=== PATIENT | female | born 1995 | race Caucasian/White ===

== ENCOUNTER → 2024-07-12 | Outpatient (CLI) | payer OTHER | LOC: M WHC 08:09 | PROVIDERS: ATTEND Obstetrics & Gynecology | DX: Z34.92 Encounter for supervision of normal pregnancy, unspecified, second trimester (principal) ==

== ENCOUNTER → 2024-08-03 | Outpatient (CLI) | payer OTHER ==
[2024-08-03 13:57] LABS: HEMATOCRIT 37.2 % (36.0-47.0); MEAN CORPUSCULAR HEMOGLOBIN 28.5 pg (27.0-33.0); MEAN CORPUSCULAR HGB CONC 32.3 g/dl (32.0-36.5); MEAN CORPUSCULAR VOLUME 88.4 fl (80.0-96.0); PLATELET COUNT, AUTOMATED 208 10^3/uL (150-450); RED BLOOD COUNT 4.21 10^6/uL (4.00-5.40); WHITE BLOOD COUNT 10.9 10^3/uL (4.0-10.0)
[2024-08-03 14:36] LABS: GLUCOSE CHALLENGE TEST 1 HOUR 92 MG/DL (LESS THAN 140)
[2024-08-03 15:06] LABS: HIV 1&2 SCREEN NEGATIVE (NEGATIVE)
[2024-08-03 15:13] LABS: HEPATITIS C VIRUS ABY INDEX 0.03 INDEX (<0.8)
== END ==
LOC: M PLALAB 09:25
PROVIDERS: ATTEND Obstetrics & Gynecology
DX: Z34.92 Encounter for supervision of normal pregnancy, unspecified, second trimester (principal)

== ENCOUNTER 2024-09-15 10:21 | Outpatient (CLI) | payer OTHER ==
[2024-09-15] MEDS ORDERED: ACET-897 PO (10:48)
[2024-09-15] MEDS ORDERED: PRENTAB9 PO (10:48)
[2024-09-15] MEDS: CYCLOBENZAPRINE 10MG TABLET PO ONE (15:14)
== END 2024-09-15 18:41 | disposition home or self-care (01) ==
LOC: M LDO 10:21
PROVIDERS: ATTEND Obstetrics & Gynecology
DX: O26.893 Other specified pregnancy related conditions, third trimester (principal); O99.513 Diseases of the respiratory system complicating pregnancy, third trimester; O09.293 Supervision of pregnancy with other poor reproductive or obstetric history, third trimester; R10.2 Pelvic and perineal pain; J45.909 Unspecified asthma, uncomplicated; Z3A.33 33 weeks gestation of pregnancy
CPT/HCPCS: 59025; G0463

== ENCOUNTER 2024-09-30 14:49 | Outpatient (CLI) | payer OTHER ==
[~2024-09-30] VITALS: Ht 170.2 cm; Wt 110.3 kg
[~2024-09-30 14:49] MED LIST: ACET-897 PO; PRENTAB9 PO
[2024-09-30 15:11] VITALS: BP 138/74
[2024-09-30 16:23] VITALS: BP 136/86
[2024-09-30] MEDS: PROMETHAZINE 25MG/ML 1ML VIAL IV ONE (16:52)
[2024-09-30] MEDS: BUTORPHANOL 2 MG/ML 1ML VIAL IV ONE (16:52)
[2024-09-30] MEDS: LR 1,000 ML IV SCH (16:52)
[2024-09-30 18:51] VITALS: BP 157/75
[2024-09-30 19:03] VITALS: BP 129/60
[2024-09-30] MEDS: PROMETHAZINE 25MG/ML 1ML VIAL IV PRN (21:03)
[2024-09-30 21:49] VITALS: BP 99/62
[2024-10-01 01:00] LABS: MEAN CORPUSCULAR HGB CONC 32.4 g/dl (32.0-36.5); MEAN CORPUSCULAR VOLUME 83.3 fl (80.0-96.0); PLATELET COUNT, AUTOMATED 175 10^3/uL (150-450); RED BLOOD COUNT 4.08 10^6/uL (4.00-5.40); WHITE BLOOD COUNT 8.2 10^3/uL (4.0-10.0)
[2024-10-01] MEDS ORDERED: PROM12.56 PO (01:04)
[2024-10-01 01:39] LABS: APPEARANCE, URINE HAZY (CLEAR); BACTERIA, URINE AUTO NEGATIVE (NEGATIVE); BILIRUBIN, URINE AUTO NEGATIVE (NEGATIVE); BLOOD, URINE BLOOD NEGATIVE (NEGATIVE); COLOR, URINE YELLOW (YELLOW); GLUCOSE, URINE (UA) AUTO NEGATIVE (NEGATIVE); KETONE, URINE AUTO 1+ mg/dL (NEGATIVE); LEUKOCYTE ESTERASE, URINE AUTO NEGATIVE (NEGATIVE); MUCUS, URINE SMALL (NEGATIVE); NITRITE, URINE AUTO NEGATIVE (NEGATIVE); PROTEIN, URINE AUTO NEGATIVE (NEGATIVE); RBC, URINE AUTO 0 /HPF (0-3); SPECIFIC GRAVITY URINE AUTO 1.018 (1.002-1.035); SQUAMOUS EPITHELIAL CELL UR AU 2 /HPF (0-6); WBC, URINE AUTO 1 /HPF (0-3)
== END 2024-10-01 01:37 | disposition home or self-care (01) ==
LOC: M LDO 14:49
PROVIDERS: ATTEND Obstetrics & Gynecology
DX: O26.893 Other specified pregnancy related conditions, third trimester (principal); M54.50 Low back pain, unspecified; R10.2 Pelvic and perineal pain; Z3A.35 35 weeks gestation of pregnancy; R03.0 Elevated blood-pressure reading, without diagnosis of hypertension
CPT/HCPCS: 36415; 59025; 73502; 81001; 85027; 87086; 96374; 96375; 96376; G0463; J0595; J2550

== ENCOUNTER → 2024-10-10 | Outpatient (REF) | payer OTHER ==
[~2024-10-10] MED LIST changes: +ACET-683 PO; +IBUP80TA PO; +PROM12.56 PO
== END ==
LOC: M PLALAB 09:38
PROVIDERS: ATTEND Nurse Practitioner Family
DX: O09.293 Supervision of pregnancy with other poor reproductive or obstetric history, third trimester (principal); O26.713 Subluxation of symphysis (pubis) in pregnancy, third trimester; O99.513 Diseases of the respiratory system complicating pregnancy, third trimester; J45.909 Unspecified asthma, uncomplicated; O26.893 Other specified pregnancy related conditions, third trimester; M89.9 Disorder of bone, unspecified; Z3A.36 36 weeks gestation of pregnancy; Z88.8 Allergy status to other drugs, medicaments and biological substances

== ENCOUNTER 2024-10-11 08:41 | Inpatient (IN) | payer OTHER ==
[~2024-10-11] VITALS: Ht 170.2 cm; Wt 111.0 kg
[2024-10-11] VITALS (7 sets, daily range): BP systolic 117–133; BP diastolic 59–81
[~2024-10-11 08:41] MED LIST changes: -ACET-683 PO; -IBUP80TA PO
[2024-10-11 09:51] LABS: HEMATOCRIT 32.8 % (36.0-47.0); HEMOGLOBIN 10.7 g/dl (12.0-15.5); MEAN CORPUSCULAR HEMOGLOBIN 26.5 pg (27.0-33.0); MEAN CORPUSCULAR HGB CONC 32.6 g/dl (32.0-36.5); MEAN CORPUSCULAR VOLUME 81.2 fl (80.0-96.0); PLATELET COUNT, AUTOMATED 163 10^3/uL (150-450); RED BLOOD COUNT 4.04 10^6/uL (4.00-5.40); WHITE BLOOD COUNT 7.8 10^3/uL (4.0-10.0)
[2024-10-11] MEDS ORDERED: HOME MED LIST COMPLETE! XX SCH (10:15)
[2024-10-11] MEDS: LACTATED RINGER'S 1000 ML IV STA (11:23)
[2024-10-11] MEDS ORDERED: OXYTOCIN DRIP 30 UNITS in IV 1 EA IV PRN (11:25)
[2024-10-11] MEDS ORDERED: TRANEXAMIC ACID INJection 1,000 MG in NS 100 ML IV PRN (11:25)
[2024-10-11] MEDS ORDERED: CARBOPROST TROMETHAMINE 250 MCG/ML AMP IM PRN (11:25)
[2024-10-11] MEDS ORDERED: LIDOCAINE 1% MDV 20ML VIAL INFIL PRN (11:25)
[2024-10-11] MEDS: miSOPROStol 50MCG 1/2 TABLET PO SCH (11:44)
[2024-10-11] MEDS ORDERED: PEN G POT 3,000,000 UNIT/50 ML 3,000,000 UNIT in IV 1 EA IV SCH (15:25)
[2024-10-12] VITALS (51 sets, daily range): BP systolic 94–146; BP diastolic 50–87
[2024-10-12] MEDS: OXYTOCIN DRIP 30 UNITS in IV 1 EA IV SCH (00:30)
[2024-10-12] MEDS: LR 1,000 ML IV SCH (00:30)
[2024-10-12] MEDS: PENICILLIN G POTASSIUM 5 MU IV 5 MU in DEXTROSE 5% (D5W) MINI-BAG PLU 100 ML IV STA ×2 (00:35)
[2024-10-12] MEDS: PEN G POT 3,000,000 UNIT/50 ML 3,000,000 UNIT in IV 1 EA IV SCH (04:21)
[2024-10-12] MEDS: BUTORPHANOL 2 MG/ML 1ML VIAL IV ONE (04:21)
[2024-10-12] MEDS: PROMETHAZINE 25MG/ML 1ML VIAL IV ONE (04:21)
[2024-10-12 07:40] LABS: HEPATITIS C VIRUS ABY INDEX < 0.02 INDEX (<0.8)
[2024-10-12] MEDS: ONDANSETRON 4MG 2ML VIAL IV PRN (07:57)
[2024-10-12] MEDS ORDERED: ONDANSETRON 4MG 2ML VIAL IV PRN (19:40)
[2024-10-12] MEDS ORDERED: LR 500 ML IV PRN (19:40)
[2024-10-12] MEDS ORDERED: diphenhydrAMINE 50MG/ML VIAL IV PRN (19:40)
[2024-10-12] MEDS ORDERED: NALOXONE INJ 0.4MG/1ML VIAL IV PRN (19:40)
[2024-10-12] MEDS ORDERED: ePHEDrine SULFATE 25 MG/5 ML(5MG/ML) SYRINGE IVP PRN (19:40)
[2024-10-12] MEDS ORDERED: EPIDURAL/PCA KEYS XX PRN (19:40)
[2024-10-12] MEDS: FENTANYL/ROPIVACAINE/NACL BAG 100 ML EPIDURAL SCH (19:46)
[2024-10-13] MEDS ORDERED: IBUPROFEN 600MG TAB PO PRN (00:15)
[2024-10-13] MEDS ORDERED: METHYLERGONOVINE MALEATE 0.2 MG TAB PO PRN (00:15)
[2024-10-13] MEDS ORDERED: RHOGAM 300MCG (1500IU) INJ IM SCH (00:15)
[2024-10-13] MEDS: OXYTOCIN DRIP 30 UNITS in IV 1 EA IV SCH (00:15)
[2024-10-13 03:05] VITALS: BP 131/6; O2SAT 98
[2024-10-13] MEDS: DIBUCAINE 1% OINTMENT 30GM TOP PRN (03:16)
[2024-10-13] MEDS: DOCUSATE SODIUM 100MG CAPSULE PO PRN (03:38)
[2024-10-13] MEDS: ACETAMINOPHEN 325 MG TAB PO PRN (03:43)
[2024-10-13 06:03] VITALS: BP 128/69; O2SAT 97
[2024-10-13] MEDS: IBUPROFEN 800 MG TAB PO PRN (09:55)
[2024-10-13] MEDS: PRENATAL VITAMINS CHEWABLE TABLET PO SCH (09:55)
[2024-10-13 18:00] VITALS: BP 140/75; O2SAT 98
[2024-10-14 06:00] VITALS: BP 131/65; O2SAT 98
[2024-10-14] MEDS ORDERED: IBUP80TA PO (09:27)
[2024-10-14] MEDS ORDERED: ACET-683 PO (09:27)
[2024-10-14] MEDS: ACETAMINOPHEN 500 MG TAB PO PRN (11:03)
[2024-10-15] MEDS ORDERED: MEASLES,MUMPS,RUBELLA VACCINE INJ (MMR-II) SC.IMMUN ONE (09:00)
== END 2024-10-14 13:45 | disposition home or self-care (01) | DRG 807 ==
LOC: M LDI 08:41 → M OBS 10-13 02:54
PROVIDERS: ADMIT Obstetrics & Gynecology; ATTEND Advanced Practice Midwife
PROC: 3E0P7GC Introduction of Other Therapeutic Substance into Female Reproductive, Via Natural or Artificial Opening (ICD-10-PCS; 2024-10-11)
PROC: 10E0XZZ Delivery of Products of Conception, External Approach (ICD-10-PCS; principal; 2024-10-12)
PROC: 0HQ9XZZ Repair Perineum Skin, External Approach (ICD-10-PCS; 2024-10-12)
DX: O13.4 Gestational [pregnancy-induced] hypertension without significant proteinuria, complicating childbirth (principal); Z37.0 Single live birth; Z3A.37 37 weeks gestation of pregnancy; O70.0 First degree perineal laceration during delivery

== ENCOUNTER → 2025-01-25 | Outpatient (CLI) | payer OTHER ==
[~2025-01-25] MED LIST changes: +ACET-683 PO; +IBUP80TA PO
[2025-01-25 18:14] LABS: BASO # 0.1 10^3/uL (0.0-0.2); EOS # 0.7 10^3/uL (0.0-0.5); EOS % 9.2 % (0.0-3.0); HEMATOCRIT 45.7 % (36.0-47.0); HEMOGLOBIN 14.6 g/dl (12.0-15.5); LYMPH % 38.2 % (24.0-44.0); MEAN CORPUSCULAR HEMOGLOBIN 27.7 pg (27.0-33.0); MEAN CORPUSCULAR HGB CONC 31.9 g/dl (32.0-36.5); MEAN CORPUSCULAR VOLUME 86.7 fl (80.0-96.0); MONO # 0.6 10^3/uL (0.0-0.8); MONO % 7.1 % (2.0-8.0); NEUTROPHILS # 3.5 10^3/uL (1.5-8.5); NEUTROPHILS % 44.4 % (36.0-66.0); PLATELET COUNT, AUTOMATED 237 10^3/uL (150-450); RED BLOOD COUNT 5.27 10^6/uL (4.00-5.40); WHITE BLOOD COUNT 7.9 10^3/uL (4.0-10.0)
[2025-01-25 18:35] LABS: ALBUMIN 3.9 G/DL (3.2-5.2); BILIRUBIN,TOTAL 0.3 MG/DL (0.3-1.2); CALCIUM LEVEL 9.5 MG/DL (8.5-10.1); CREATININE FOR GFR 0.93 MG/DL (0.55-1.30); FREE T4 1.21 NG/DL (0.89-1.76); GLOMERULAR FILTRATION RATE 86.4 (>60); MAGNESIUM LEVEL 1.8 MG/DL (1.8-2.4); PERCENT SATURATION 7.7 % (13.2-45.0); POTASSIUM SERUM 4.1 MMOL/L (3.5-5.1); THYROID STIMULATING HORMONE 1.928 uIU/ML (0.55-4.78); TOTAL PROTEIN 6.9 G/DL (5.7-8.2)
[2025-01-25 18:46] LABS: FOLATE 20.6 NG/ML (>5.4)
== END ==
LOC: M LAB 17:34
PROVIDERS: ATTEND Physician Assistant
DX: R53.83 Other fatigue (principal)